=== PATIENT | female | born 1950 | race Caucasian/White ===

== ENCOUNTER 2017-09-06 05:41 | Day surgery (SDC) | payer OTHER ==
[2017-09-06] MEDS ORDERED: MIDAZOLAM 1 MG/ML 2 ML INJ (07:34)
[2017-09-06] MEDS ORDERED: FENTAnyl 50 MCG/ML VIAL (07:35)
== END 2017-09-06 11:18 | disposition home or self-care (01) ==
LOC: GIL 05:41
DX: K44.9 Diaphragmatic hernia without obstruction or gangrene (principal); K21.9 Gastro-esophageal reflux disease without esophagitis; K29.70 Gastritis, unspecified, without bleeding; E11.9 Type 2 diabetes mellitus without complications; E78.5 Hyperlipidemia, unspecified; Z79.82 Long term (current) use of aspirin
CPT/HCPCS: 43239; 82962; 87081